=== PATIENT | female | born 1975 | race Caucasian/White ===

== ENCOUNTER 2019-02-11 13:26 | Emergency (ER) | payer OTHER, MEDICAID, SELFPAY ==
[2019-02-11 13:27] VITALS: BP 113/73; PULSE 62; RESP 16; TEMP 36.6; O2SAT 98; BMI 34.9
--- NOTE | 2019-02-11 13:47 | RAD_ITS ---
HISTORY: Status post trauma/fall with chest pain XR Chest 2 Views TECHNIQUE: Frontal and lateral views of chest. # of images incl. paperwork: 2 COMPARISON: None. FINDINGS: Normal cardiomediastinal silhouette. Pulmonary vasculature appears normal. The lungs are clear. No pleural effusions or pneumothorax. No acute osseous abnormality of the thorax. RAD/Chest PA and Lateral IMPRESSION: 1. No acute cardiopulmonary disease. at 1456 Reported and signed by: Florentin Nugent MD Electronically Signed: Florentin Nugent MD at 14:55 EDT Tel , Service support ,
--- NOTE | 2019-02-11 13:47 | RAD_ITS ---
HISTORY: Status post trauma with left hand pain XR Hand Min 3 Views TECHNIQUE: 3 views # of images incl. paperwork: 3 COMPARISON: None. FINDINGS: No acute fracture or dislocation. Joint spaces are well-preserved. Soft tissues appear unremarkable. No radiopaque foreign body. RAD/Hand Min 3 Views IMPRESSION: 1. Negative examination. at 0827 Reported and signed by: Florentin Nugent MD Electronically Signed: Florentin Nugent MD at 14:56 EDT Tel , Service support ,
--- NOTE | 2019-02-11 13:47 | CT_ITS ---
HISTORY: Status post fall with facial pain COMPARISON: None. TECHNIQUE: Helical CT axial images were obtained of the facial bones without intravenous contrast. Multiplanar reconstruction. A radiation dose optimization technique was used for this scan. # of images incl. paperwork: 298 FINDINGS: No acute facial bone fracture or dislocation. Minimal mucosal thickening floor of bilateral maxillary sinuses. Otherwise clear paranasal sinuses. Bilateral globes and retrobulbar contents are unremarkable. Visualized intracranial structures demonstrate no acute abnormality. Mastoid air cells are clear. Intact visualized calvarium. Unremarkable bilateral temporomandibular joints. No significant facial soft tissue swelling or radiopaque foreign body. CT/Sinus/Facial Bone IMPRESSION: 1. No acute facial bone fracture. 2. Minimal chronic mucosal thickening bilateral maxillary sinus floors. 3. Otherwise, negative examination. Individualized dose optimization techniques were used for this CT. at 1455 Reported and signed by: Florentin Nugent MD Electronically Signed: Florentin Nugent MD at 14:54 EDT Tel , Service support ,
--- NOTE | 2019-02-11 13:47 | RAD_ITS ---
HISTORY: Status post trauma with left lower extremity pain XR Tibia/Fibula 2 Views TECHNIQUE: 2 views # of images incl. paperwork: 2 COMPARISON: None. FINDINGS: No acute fracture or dislocation. No focal lytic or blastic abnormality. Soft tissues appear unremarkable. No radiopaque foreign body. RAD/Tibia & Fibula 2 Views IMPRESSION: 1. No acute fracture. at 1456 Reported and signed by: Florentin Nugent MD Electronically Signed: Florentin Nugent MD at 14:55 EDT Tel , Service support ,
--- NOTE | 2019-02-11 13:47 | CT_ITS ---
HISTORY: Status post fall with head pain COMPARISON: None. TECHNIQUE: Helical CT axial images are obtained from the base of skull through the vertex without IV contrast. Multiplanar reconstruction. A radiation dose optimization technique was used for this scan. # of images incl. paperwork: 235 FINDINGS: No parenchymal hemorrhage, infarct, intra-axial mass, mass effect, or midline shift. No abnormal extra-axial fluid collections. Ventricles are normal in size and configuration. No hydrocephalus. Bone windows show no skull fracture or calvarial lesions. Visualized paranasal sinuses are clear. Visualized mastoid air cells are clear. CT/Brain/Head without Contrast IMPRESSION: 1. No acute intracranial disease. Individualized dose optimization techniques were used for this CT. at 1454 Reported and signed by: Florentin Nugent MD Electronically Signed: Florentin Nugent MD at 14:53 EDT Tel , Service support ,
--- NOTE | 2019-02-11 15:15 | ED.VISSUMM ---
- ER Visit Summary Date of Service: 02/11/19 Chief Complaint: Fall, head injury, hand and foot pain History of Present Illness: The patient is a 44 F who presents with the above symptoms after a fall. She slipped down 5 steps yesterday. She hit her head, left wrist and hand. She also complains of some left ankle pain. Pain is worse with movement. She tried Aleve without any relief. No LOC. She is not on any blood thinning medications. Physical Examination: Vital signs reviewed. HEENT exam unremarkable. Heart is regular rate and rhythm without murmurs. Lungs are clear to auscultation. Abdomen is soft and nontender. Extremities reveal no edema. She does have tenderness of the left distal tibia and left thumb area. Range of motion is painful range of these joints. No deformities. Skin exam normal. Neurologic exam shows she has some paresthesias to the left side of the face but otherwise unremarkable. Test Results: CAT scan of the head, facial bones, x-rays of the chest hand and tibia?fibula are all normal Emergency Department Course and Treatment: Patient did not want any pain medications here. She likely has contusions to all of these areas. She may have some slight neuropraxia due to the facial numbness. No signs of stroke or bleeding on head CT. She will use ice on any areas that are sore. Aleve for pain. Treatment Plan: [] Disposition: Discharge Impression: Left hand contusion, left tibial contusion, neuropraxia This note was generated with [employer] dictation software. It may contain incorrect words, spelling, and punctuation that were not noted in review of the chart prior to signing ED Disposition - Plan for ED Patient: Referrals: [facility] ,Out of [Primary Care Provider] -
--- NOTE | 2019-02-11 15:18 | ED.DEP ---
ED Disposition - Plan for ED Patient: Disposition: Home or Assisted Living Instructions: FALL, Mechanical Referrals: [facility],Out of [Primary Care Provider] -
== END 2019-02-11 15:30 | disposition home or self-care (01) ==
PROVIDERS: Emergency Provider Emergency Medicine
DX: S09.90XA Unspecified injury of head, initial encounter (principal); S80.12XA Contusion of left lower leg, initial encounter; S60.222A Contusion of left hand, initial encounter; S04.50XA Injury of facial nerve, unspecified side, initial encounter; M25.572 Pain in left ankle and joints of left foot; W10.9XXA Fall (on) (from) unspecified stairs and steps, initial encounter; Y93.9 Activity, unspecified; Y92.9 Unspecified place or not applicable; Y99.9 Unspecified external cause status
CPT/HCPCS: 70450; 70486; 71046; 73130; 73590; 99282